=== PATIENT | male | born 1950 | race Caucasian/White ===

== ENCOUNTER 2017-06-19 23:33 | Emergency (ER) | payer OTHER, MEDICARE ==
[~2017-06-19] VITALS: Ht 180.3 cm; Wt 93.6 kg
[2017-06-19 23:54] LABS: HEMATOCRIT 42.3 % (38.0-50.0); HEMOGLOBIN 14.3 G/DL (12.5-16.6); MCH 30.6 PG (29.0-34.0); MCHC 33.8 G/DL (30.0-36.0); MCV 90.4 FL (86-99); PLATELET COUNT 148 K/uL (156-360); RBC DIS.WIDTH-CV 12.8 % (11.8-14.6); RED BLOOD COUNT 4.68 M/uL (4.00-5.50)
[2017-06-20 00:02] LABS: ALBUMIN 4.4 g/dL (3.2-4.8); CHLORIDE 106 mEq/L (99-109); POTASSIUM 3.9 mEq/L (3.7-5.4); SODIUM 137 mEq/L (136-147)
[2017-06-20 00:04] LABS: GLUCOSE 104 mg/dL (70-99)
[2017-06-20 00:05] LABS: TOTAL PROTEIN 7.5 g/dL (6.4-8.3)
[2017-06-20 00:06] LABS: TOTAL BILIRUBIN 0.7 mg/dL (0.0-1.0)
[2017-06-20 00:08] LABS: ALKALINE PHOSPHATASE 67 IU/L (3-129); GFR ESTIMATE (CALCULATED) > 59 mL/min/ (58.99-99999)
[2017-06-20 00:09] LABS: UREA NITROGEN (BUN) 20 mg/dL (9-23)
[2017-06-20 00:10] LABS: AST (GOT) 29 IU/L (2-34)
[2017-06-20 00:11] LABS: ALT (GPT) 28 IU/L (3-49); LIPASE 22 U/L (1.0-51.0)
[2017-06-20 00:42] LABS: APPEARANCE CLEAR ((CLEAR)); BILIRUBIN NEGATIVE; BLOOD SMALL; COLOR YELLOW ((YELLOW)); GLUCOSE (STRIP) NEGATIVE; KETONES NEGATIVE; LEUKOCYTES NEGATIVE; NITRITE NEGATIVE; PROTEIN (STRIP) NEGATIVE; SPECIFIC GRAVITY 1.011 (1.000-1.030); UROBILINOGEN 0.2 MG/DL (0.2-1.0)
[2017-06-20 00:53] LABS: BACTERIA NONE SEEN /HPF; EPITHELIAL CELLS NONE SEEN /HPF; HYALINE CASTS 0-5 /LPF; MUCUS TRACE /LPF; RED BLOOD CELLS 0-5 /HPF (0-5); UCUL ADDED? NO; WHITE BLOOD CELLS 0-5 /HPF (0-5)
[2017-06-20] MEDS ORDERED: CIPRO500 MG PO (00:59)
[2017-06-20 01:15] VITALS: BP 116/85
[2017-06-20 02:14] LABS: C DIFF TOXIN POSITIVE (NEGATIVE)
== END 2017-06-20 01:16 | disposition home or self-care (01) ==
LOC: EME 23:33
PROVIDERS: Physician Assistant
DX: R19.7 Diarrhea, unspecified (principal)
CPT/HCPCS: 80053; 81003; 83690; 85027; 87493; 87506